=== PATIENT | male | born 1980 | race African-American/Black ===

== ENCOUNTER 2017-02-18 10:26 | Emergency (ER) | payer BC ==
[~2017-02-18] VITALS: Ht 170.2 cm; Wt 72.6 kg
== END 2017-02-18 11:15 | disposition home or self-care (01) ==
LOC: ED 10:26
DX: M62.838 Other muscle spasm (principal)
CPT/HCPCS: 99281

== ENCOUNTER 2017-12-31 14:47 | Emergency (ER) | payer BC ==
[~2017-12-31] VITALS: Ht 177.8 cm; Wt 77.1 kg
[2017-12-31 15:58] VITALS: BP 140/86; TEMP 98
== END 2017-12-31 16:00 | disposition home or self-care (01) ==
LOC: ED 14:47
DX: H66.92 Otitis media, unspecified, left ear (principal)
CPT/HCPCS: 99281